=== PATIENT | male | born 1985 | race Caucasian/White ===

== ENCOUNTER 2020-10-25 09:34 | Emergency (ER) | payer BC ==
[2020-10-25 09:41] VITALS: BP 129/85; PULSE 94; RESP 18; TEMP 98.3
[2020-10-25] MEDS ORDERED: cefTRIAXone 250 MG VIAL IM STA (09:51)
[2020-10-25] MEDS ORDERED: AZITHROMYCIN 500 MG TAB PO STA (09:56)
[2020-10-25] MEDS ORDERED: cefTRIAXone 500 MG VIAL IM STA (10:07)
--- NOTE | 2020-10-25 10:08 | ED ---
General Adult HPI - General Chief complaint: Urogenital Stated complaint: Male Time Seen by Provider: 10/25/20 09:48 Source: patient Mode of arrival: ambulatory Limitations: no limitations - History of Present Illness Initial comments: 35-year-old male presenting to the emergency department today for chief complaint of STI testing. pt partner tested positive for gonorrhea and Chlamydia he would like testing and treatment. Patient has no current symptoms denies discharge, testicular pain, dysuria urgency frequency of bowel pain or fevers. Patient appears well nontoxic in no acute distress - Related Data Allergies Allergy/AdvReac Type Severity Reaction Status Date / Time No Known Allergies Allergy Verified 10/25/20 09:39 Review of Systems ROS Statement: Those systems with pertinent positive or pertinent negative responses have been documented in the HPI. ROS Other: All systems not noted in ROS Statement are negative. Past Medical History Past Medical History: No Reported History History of Any Multi-Drug Resistant Organisms: None Reported Past Surgical History: No Surgical Hx Reported Past Psychological History: No Psychological Hx Reported Smoking Status: Current every day smoker Past Alcohol Use History: Rare Past Drug Use History: Marijuana General Exam - General Exam Comments Initial Comments: General: The patient is awake and alert, in no distress, and does not appear acutely ill. Eye: Pupils are equal, round and reactive to light, extra-ocular movements are intact. No nystagmus. There is normal conjunctiva bilaterally. No signs of icterus. Neurological: A&O x 3. CN II-XII intact grossly, There are no obvious motor or sensory deficits. Coordination appears grossly intact. Speech is normal. Skin: Skin is warm and dry and no rashes or lesions are noted. Psychiatric: Cooperative, appropriate mood & affect, normal judgment. Limitations: no limitations Course Vital Signs 10/25/20 09:39 Temperature 98.3 F Pulse Rate 94 Respiratory 18 Rate Blood Pressure 129/85 O2 Sat by Pulse 99 Oximetry Medical Decision Making - Medical Decision Making Treated. tested and advised about safe sex. pt treated as well. pt discharged appearing well. Disposition Clinical Impression: Concern about STD in male without diagnosis Disposition: HOME SELF-CARE Condition: Good Instructions (If sedation given, give patient instructions): Safe Sex (ED) Additional Instructions: Please use medication as discussed. Please follow-up with family doctor in the next 2 days. Please return to emergency room if the symptoms increase or worsen or for any other concerns. Is patient prescribed a controlled substance at d/c from ED?: No Referrals: None,Stated [Primary Care Provider] - 1-2 days Time of Disposition: 10:08
[2020-10-25 10:29] LABS: Appearance,Urine Clear (Clear); Bilirubin,Urine Negative (Negative); Blood,Urine Negative (Negative); Color,Urine Yellow; Glucose,Urine (UA) Negative (Negative); Ketones,Urine 1+ (Negative); Leukocyte Esterase,Urine Negative (Negative); Nitrite,Urine Negative (Negative); Protein,Urine Trace (Negative); Specific Gravity,Urine 1.034 (1.001-1.035)
[2020-10-26 15:00] LABS: C. trachomatis,PCR Negative (Neg,Equiv); Chlamydia trachomatis Source Urine
[2020-10-26 15:03] LABS: N. gonorrhoeae,PCR Negative (Neg,Equiv); Neisseria Source Urine
== END 2020-10-25 10:35 | disposition home or self-care (01) ==
LOC: EC 09:34
DX: Z11.3 Encounter for screening for infections with a predominantly sexual mode of transmission (principal); F17.200 Nicotine dependence, unspecified, uncomplicated; F12.90 Cannabis use, unspecified, uncomplicated
CPT/HCPCS: 81003; 87491; 87591; 99283; 96372; J0696